=== PATIENT | female | born 1985 | race Caucasian/White ===

== ENCOUNTER 2018-04-19 15:55 | Inpatient (IN) | payer MEDICAID, OTHER ==
[2018-04-19] MEDS ORDERED: HYDROmorphONE 1 MG/ML SYG IV (16:11)
[2018-04-19] MEDS ORDERED: ONDANSETRON 4 MG INJ IV ×2 (16:11→18:30)
[2018-04-19] MEDS: LORAZEPAM 2 MG INJ IV ×2 (16:32→19:08)
[2018-04-19] MEDS: DIPHENHYDRAMINE 50 MG INJ IV (16:32)
[2018-04-19] MEDS: SOD CHLORIDE 0.9% 1,000 ML IV ×2 (16:32→23:53)
[2018-04-19] MEDS: HYDROmorphONE 2 MG/ML SYG IV ×2 (16:32→18:56)
[2018-04-19 17:43] LABS: ADD MAN DIFF? NO
[2018-04-19] MEDS: PHENYTOIN 1,000 MG in SOD CHLORIDE 0.9% 80 ML IVPB (17:50)
[2018-04-19 17:52] LABS: BASOPHILS % 0.3 % (0.0-2.0); EOSINOPHILS % 0.4 % (0.0-7.0); HEMATOCRIT 38.3 % (37.0-47.0); HEMOGLOBIN 12.4 g/dl (12.0-16.0); LYMPHOCYTES # 1.8 10^3/ul (0.8-2.9); LYMPHOCYTES % 16.5 % (15.0-51.0); MEAN CORPUSCULAR HEMOGLOBIN 28.1 pg (29.0-33.0); MEAN CORPUSCULAR HGB CONC 32.4 g/dl (32.0-37.0); MEAN CORPUSCULAR VOLUME 86.8 fl (82.0-101.0); MEAN PLATELET VOLUME 9.4 fl (7.4-10.4); MONOCYTE # 0.4 10^3/ul (0.3-0.9); MONOCYTES % 3.3 % (0.0-11.0); NEUTROPHIL # 8.7 10^3/ul (1.6-7.5); PLATELET COUNT 416 10^3/UL (140-415); RED BLOOD COUNT 4.41 10^6/ul (4.20-5.40); RED CELL DISTRIBUTION WIDTH 12.8 % (11.5-14.5)
[2018-04-19 18:13] LABS: ALANINE AMINOTRANSFERASE 26 IU/L (13-69); ALBUMIN 3.9 g/dl (3.3-4.9); ALBUMIN/GLOBULIN RATIO 1.08; ALKALINE PHOSPHATASE 94 IU/L (42-121); ANION GAP 10 (5-13); ASPARTATE AMINO TRANSFERASE 20 IU/L (15-46); BILIRUBIN,INDIRECT 0.1 mg/dl (0-1.1); BILIRUBIN,TOTAL 0.1 mg/dl (0.2-1.3); BLOOD UREA NITROGEN 8 mg/dl (7-20); CALCIUM 8.6 mg/dl (8.4-10.2); CARBON DIOXIDE 20 mmol/L (21-31); CHLORIDE 112 mmol/L (97-110); CREATININE 0.44 mg/dl (0.44-1.00); Estimated GFR > 60 mL/min (>60); GLUCOSE 94 mg/dl (70-220); INR 1.07; POTASSIUM 3.4 mmol/L (3.5-5.1); PT RATIO 1.1; SODIUM 142 mmol/L (135-144); TOTAL PROTEIN 7.5 g/dl (6.1-8.1)
[2018-04-19 18:14] LABS: PARTIAL THROMBOPLASTIN TIME 40.5 Sec (23.0-35.0)
[2018-04-19] MEDS: SOD CHLORIDE 0.9% 500 ML IV (18:15)
[2018-04-19 18:21] LABS: ADD UMIC YES; UR ASCORBIC ACID NEGATIVE (NEGATIVE); UR BILIRUBIN (Dip) NEGATIVE (NEGATIVE); UR BLOOD (Dip) NEGATIVE (NEGATIVE); UR CLARITY CLOUDY (CLEAR); UR COLOR YELLOW (YELLOW); UR GLUCOSE (Dip) NEGATIVE (NEGATIVE); UR KETONES (Dip) TRACE mg/dL (NEGATIVE); UR LEUKOCYTE ESTERASE (Dip) NEGATIVE Leu/ul (NEGATIVE); UR MUCUS MANY /HPF (NONE SEEN); UR NITRITE (Dip) NEGATIVE (NEGATIVE); UR RBC 0 /HPF (0-5); UR SPECIFIC GRAVITY (Dip) 1.024 (1.003-1.030); UR SQUAMOUS EPITHELIAL CELL MANY /HPF (FEW); UR TOTAL PROTEIN (Dip) NEGATIVE (NEGATIVE); UR UROBILINOGEN (Dip) 1+ mg/dL (NEGATIVE); UR WBC 2 /HPF (0-5)
[2018-04-19] MEDS ORDERED: ACETAMINOPHEN 325 MG TAB PO (18:30)
[2018-04-19] MEDS ORDERED: NACL 0.9% 3 ML SYG IV (18:30)
[2018-04-19] MEDS ORDERED: morphine 2 MG INJ IV (18:30)
[2018-04-19] MEDS ORDERED: HYDROCODONE/APAP (5/325) TAB PO (18:30)
[2018-04-19 18:46] LABS: PHENYTOIN (DILANTIN) < 3.0 ug/ml (10.0-20.0)
[2018-04-19] MEDS: DIPHENHYDRAMINE 50 MG INJ IM (18:56)
[2018-04-19 19:09] LABS: CREATINE KINASE 73 IU/L (23-200)
[2018-04-19 19:16] LABS: AMPHETAMINE/METHAMPHETAMINE Negative (NEGATIVE); BARBITURATES Negative (NEGATIVE); BENZODIAZEPINES Negative (NEGATIVE); CANNABINOIDS Negative (NEGATIVE); COCAINE Negative (NEGATIVE)
[2018-04-19 19:20] LABS: OPIATES Positive (NEGATIVE)
[2018-04-20] MEDS: DIPHENHYDRAMINE 50 MG INJ IM ×4 (00:56→23:08)
[2018-04-20] MEDS: LORAZEPAM 2 MG INJ IV ×5 (00:57→23:08)
[2018-04-20] MEDS: HYDROmorphONE 2 MG/ML SYG IV ×5 (00:57→23:08)
[2018-04-20 06:10] LABS: ADD MAN DIFF? NO
[2018-04-20 06:20] LABS: WHITE BLOOD COUNT 13.2 10^3/ul (4.8-10.8)
[2018-04-20 06:20] LABS: BASOPHILS % 0.2 % (0.0-2.0); EOSINOPHILS # 0.1 10^3/ul (0.0-0.5); EOSINOPHILS % 0.5 % (0.0-7.0); HEMATOCRIT 33.3 % (37.0-47.0); HEMOGLOBIN 11.2 g/dl (12.0-16.0); LYMPHOCYTES # 2.2 10^3/ul (0.8-2.9); LYMPHOCYTES % 16.5 % (15.0-51.0); MEAN CORPUSCULAR HEMOGLOBIN 28.6 pg (29.0-33.0); MEAN CORPUSCULAR HGB CONC 33.6 g/dl (32.0-37.0); MEAN CORPUSCULAR VOLUME 85.2 fl (82.0-101.0); MEAN PLATELET VOLUME 9.4 fl (7.4-10.4); MONOCYTE # 0.7 10^3/ul (0.3-0.9); NEUTROPHIL # 10.2 10^3/ul (1.6-7.5); NEUTROPHILS % 77.3 % (39.0-77.0); PLATELET COUNT 386 10^3/UL (140-415); RED BLOOD COUNT 3.91 10^6/ul (4.20-5.40); RED CELL DISTRIBUTION WIDTH 12.7 % (11.5-14.5)
[2018-04-20 06:49] LABS: PHENYTOIN (DILANTIN) 11.2 ug/ml (10.0-20.0)
[2018-04-20 07:38] LABS: ALANINE AMINOTRANSFERASE 26 IU/L (13-69); ALBUMIN 3.8 g/dl (3.3-4.9); ALBUMIN/GLOBULIN RATIO 1.08; ALKALINE PHOSPHATASE 89 IU/L (42-121); ANION GAP 12 (5-13); ASPARTATE AMINO TRANSFERASE 18 IU/L (15-46); BILIRUBIN,INDIRECT 0.3 mg/dl (0-1.1); BILIRUBIN,TOTAL 0.3 mg/dl (0.2-1.3); BLOOD UREA NITROGEN 4 mg/dl (7-20); CALCIUM 8.6 mg/dl (8.4-10.2); CARBON DIOXIDE 21 mmol/L (21-31); CHLORIDE 105 mmol/L (97-110); CREATININE 0.47 mg/dl (0.44-1.00); Estimated GFR > 60 mL/min (>60); GLUCOSE 85 mg/dl (70-220); MAGNESIUM 1.7 mg/dl (1.7-2.5); POTASSIUM 3.2 mmol/L (3.5-5.1); SODIUM 138 mmol/L (135-144); TOTAL PROTEIN 7.3 g/dl (6.1-8.1)
[2018-04-20] MEDS: POTASSIUM CHLORIDE (SR) 20 MEQ TAB PO ×2 (09:05→11:56)
[2018-04-20] MEDS: DIPHENHYDRAMINE 50 MG INJ IV (11:46)
[2018-04-20] MEDS: SOD CHLORIDE 0.9% 1,000 ML IV ×2 (12:56→14:36)
[2018-04-20 16:56] LABS: PHOSPHORUS 3.4 mg/dl (2.5-4.9)
[2018-04-21] MEDS: SOD CHLORIDE 0.9% 1,000 ML IV ×2 (05:02→16:40)
[2018-04-21] MEDS: HYDROmorphONE 2 MG/ML SYG IV ×4 (05:09→23:41)
[2018-04-21] MEDS: LORAZEPAM 2 MG INJ IV ×4 (05:09→23:46)
[2018-04-21] MEDS: DIPHENHYDRAMINE 50 MG INJ IM (05:09)
[2018-04-21 06:21] LABS: ADD MAN DIFF? NO
[2018-04-21 06:38] LABS: WHITE BLOOD COUNT 9.8 10^3/ul (4.8-10.8)
[2018-04-21 06:38] LABS: BASOPHILS % 0.4 % (0.0-2.0); EOSINOPHILS # 0.1 10^3/ul (0.0-0.5); EOSINOPHILS % 0.9 % (0.0-7.0); HEMATOCRIT 34.6 % (37.0-47.0); HEMOGLOBIN 11.3 g/dl (12.0-16.0); LYMPHOCYTES # 1.7 10^3/ul (0.8-2.9); LYMPHOCYTES % 17.2 % (15.0-51.0); MEAN CORPUSCULAR HEMOGLOBIN 28.5 pg (29.0-33.0); MEAN CORPUSCULAR HGB CONC 32.7 g/dl (32.0-37.0); MEAN CORPUSCULAR VOLUME 87.2 fl (82.0-101.0); MEAN PLATELET VOLUME 9.7 fl (7.4-10.4); MONOCYTE # 0.8 10^3/ul (0.3-0.9); MONOCYTES % 7.6 % (0.0-11.0); NEUTROPHIL # 7.2 10^3/ul (1.6-7.5); NEUTROPHILS % 73.5 % (39.0-77.0); PLATELET COUNT 370 10^3/UL (140-415); RED BLOOD COUNT 3.97 10^6/ul (4.20-5.40); RED CELL DISTRIBUTION WIDTH 13.2 % (11.5-14.5)
[2018-04-21 07:02] LABS: ANION GAP 10 (5-13); BLOOD UREA NITROGEN 7 mg/dl (7-20); CALCIUM 8.7 mg/dl (8.4-10.2); CARBON DIOXIDE 20 mmol/L (21-31); CHLORIDE 109 mmol/L (97-110); CREATININE 0.44 mg/dl (0.44-1.00); Estimated GFR > 60 mL/min (>60); GLUCOSE 84 mg/dl (70-220); PHOSPHORUS 3.3 mg/dl (2.5-4.9); POTASSIUM 3.9 mmol/L (3.5-5.1); SODIUM 139 mmol/L (135-144)
[2018-04-21 07:09] LABS: PHENYTOIN (DILANTIN) 5.6 ug/ml (10.0-20.0)
[2018-04-21] MEDS: LIDOCAINE 1% (MPF) 5 ML VIAL SC (11:00)
[2018-04-21] MEDS: DIPHENHYDRAMINE 50 MG INJ IV ×3 (12:35→23:46)
[2018-04-21 17:10] LABS: PHENYTOIN (DILANTIN) 4.1 ug/ml (10.0-20.0)
[2018-04-21] MEDS: PHENYTOIN 500 MG in SOD CHLORIDE 0.9% 100 ML IV (17:20)
[2018-04-21 20:36] LABS: PHENYTOIN (DILANTIN) 10.2 ug/ml (10.0-20.0)
[2018-04-21] MEDS: PHENYTOIN 100 MG CAP PO (23:40)
[2018-04-22] MEDS: HYDROmorphONE 2 MG/ML SYG IV ×3 (05:40→16:08)
[2018-04-22] MEDS: LORAZEPAM 2 MG INJ IV ×3 (05:40→16:08)
[2018-04-22] MEDS: DIPHENHYDRAMINE 50 MG INJ IV ×3 (05:40→16:08)
[2018-04-22] MEDS: SOD CHLORIDE 0.9% 1,000 ML IV (05:41)
[2018-04-22 07:13] LABS: PHENYTOIN (DILANTIN) 12.2 ug/ml (10.0-20.0)
[2018-04-22] MEDS: HYDROCODONE/APAP (5/325) TAB PO (08:00)
[2018-04-22] MEDS: PHENYTOIN 100 MG CAP PO (08:51)
== END 2018-04-22 17:17 | disposition home or self-care (01) | DRG 101 ==
LOC: E/R 15:55 → TEL 04-20 23:59
DX: G40.901 Epilepsy, unspecified, not intractable, with status epilepticus (principal); R51 Headache; Z87.820 Personal history of traumatic brain injury
CPT/HCPCS: 70450; 70551; 71045; 80048; 80053; 80185; 80307; 81001; 81025; 82550; 83735; 84100; 85025; 85610; 85730; 93306; 95819; 96374; 96375; 96376; 99285-25

== ENCOUNTER 2018-06-23 08:18 | Emergency (ER) | payer OTHER ==
[2018-06-23 09:01] LABS: URINE BLOOD (Dip) POC Trace-intact (NEGATIVE); URINE KETONES (Dip) POC Negative (NEGATIVE); URINE LEUKOCYTE EST (Dip) POC Negative (NEGATIVE); URINE NITRITE (Dip) POC Negative (NEGATIVE); URINE TOTAL PROTEIN POC Negative (NEGATIVE)
[2018-06-23] MEDS: KETOROLAC 60 MG INJ IM (09:04)
[2018-06-23] MEDS: ONDANSETRON (ODT) 4 MG TAB ODT (09:06)
[2018-06-23] MEDS: SCOPOLAMINE 1.5 MG PATCH TRANSDERM (09:29)
== END 2018-06-23 09:35 | disposition home or self-care (01) ==
LOC: FTE 08:18
DX: R51 Headache (principal)
CPT/HCPCS: 81003; 81025; 99283